=== PATIENT | male | born 1970 | race Caucasian/White ===

== ENCOUNTER 2017-04-24 08:35 | Day surgery (SDC) | payer OTHER ==
[2017-04-24] MEDS ORDERED: ASPIRIN EC 325 MG TAB PO ONE (08:41)
[2017-04-24] MEDS ORDERED: NS 1,000 ML IV ONE (08:41)
[2017-04-24] MEDS ORDERED: FAMOTIDINE 20 MG TAB PO ONE (08:41)
[2017-04-24] MEDS ORDERED: DIAZEPAM 5 MG TAB PO ONE (08:41)
[2017-04-24] MEDS ORDERED: diphenhydrAMINE 25 MG CAP PO ONE (08:41)
--- NOTE | 2017-04-24 09:09 | CPEKG ---
Heart Rate: 61 RR Interval: 984 P-R Interval: 164 QRSD Interval: 88 QT Interval: 416 QTC Interval: 419 P [place]: 64 QRS [place]: 86 T Wave [place]: 55 EKG Severity - BORDERLINE ECG - EKG Impression: SINUS RHYTHM EKG Impression: CONSIDER RVH Electronically Signed By: Topher Wood 24-Apr-2017 17:35:13
[2017-04-24 09:23] LABS: % IMMATURE GRANULYOCYTES 0.2 % (0.0-1.1); ABSOLUTE IMMATURE GRANULOCYTES 0.01 10^3/uL (0.00-0.10); ADD DIFF? NO; ADD MORPH? NO; ADD SCAN? NO; ATYPICAL LYMPHOCYTE FLAG 0 (0-99); FRAGMENT RBC FLAG 0 (0-99); HEMATOCRIT 46.4 % (40.0-51.0); LEFT SHIFT FLG 0 (0-99); LIPEMIA HEMOLYSIS FLAG 90 (0-99); MEAN CELL HEMOGLOBIN 30.3 pg (27.9-34.1); MEAN CELL HEMOGLOBIN CONCENTR. 34.5 g/dL (32.4-36.7); MEAN CELL VOLUME 87.9 fL (81.5-99.8); MEAN PLATELET VOLUME 9.7 fL (8.7-11.7); PLATELET CLUMPS FLAG 0 (0-99); PLATELET COUNT 191 10^3/uL (150-400); RED BLOOD CELL COUNT 5.28 10^6/uL (4.40-6.38); RED CELL DISTRIBUTION WIDTH 12.3 % (11.5-15.2)
[2017-04-24 09:33] LABS: ANION GAP 11 mEq/L (8-16); CALCIUM 9.1 mg/dL (8.5-10.4); CARBON DIOXIDE 27 mEq/l (22-31); CHLORIDE 104 mEq/L (97-110); CHOLESTEROL 224 mg/dL (140-200); CHOLESTEROL/HDL RATIO 3.61 RATIO (1.00-4.97); CREATININE 1.2 mg/dL (0.7-1.3); GLOMERULAR FILTRATION RATE > 60; GLUCOSE 91 mg/dL (70-100); HIGH DENSITY LIPOPROTEIN 62 mg/dL (40-65); LDL/HDL RATIO 2.27 RATIO (1.00-3.64); LOW DENSITY LIPOPROTEIN 141 mg/dL (70-100); NON-HIGH DENSITY LIPOPROTEIN 162 mg/dL (90-129); POTASSIUM 4.2 mEq/L (3.5-5.2); SODIUM 142 mEq/L (134-144); TRIGLYCERIDE 109 mg/dL (40-150); VERY LOW DENSITY LIPOPROTEINS 21 mg/dL (8-25)
[2017-04-24 09:35] LABS: INR 0.99 (0.83-1.16)
[2017-04-24] MEDS ORDERED: IOPAMIDOL (ISOVUE-370) 150 ML BTL IV ONE (10:42)
[2017-04-24] MEDS ORDERED: MIDAZOLAM 2 MG/2 ML VIAL ONE (10:42)
[2017-04-24] MEDS ORDERED: LIDOCAINE 1% 300 MG/30 ML SDV ONE (10:42)
[2017-04-24] MEDS ORDERED: fentaNYL 100 MCG/2 ML INJ ONE (10:42)
--- NOTE | 2017-04-24 11:31 | PDGENHP ---
History & Physical Chief Complaint: Exertional chest pressure with radiation to the arms History of Present Illness: 47 year old with exetional chest pressuer with radaiton to the arms bilaterally with ECG changes and chest pressure on ETT. Pertinent Past, Social, Family History: Hyperlipidmeia, Anxiety Relevant Physical Exam: Awake, Alert Appropriate
--- NOTE | 2017-04-24 11:31 | PDPROPOC ---
Sedation Plan of Care Sedation Plan of Care: vital signs stable, mental status noted, patient educated of risks, benefits, alternatives, patient can tolerate sedation ASA Classification: ASA 2 Planned drugs: fentanyl, midazolam Mallampati Score: Class 1 Mallampati Reference Image: Patient passed 3-3-2 rule?: Yes
[2017-04-24] MEDS ORDERED: NITROGLYCERIN 0.4 MG BTL SL PRN (12:31)
[2017-04-24] MEDS ORDERED: ATROPINE SULFATE 1 MG/10 ML SYR IVP PRN (12:31)
[2017-04-24] MEDS ORDERED: ONDANSETRON 4 MG/2 ML VIAL IVP PRN (12:31)
[2017-04-24] MEDS ORDERED: HYDROCODONE/APAP 5/325 TAB PO PRN (12:31)
[2017-04-24] MEDS ORDERED: OXYCODONE/APAP 5/325 TAB PO PRN (12:31)
[2017-04-24] MEDS ORDERED: ATROPINE SULFATE 1 MG/10 ML SYR ONE (12:39)
[2017-04-24] MEDS ORDERED: ASPIRIN 325 MG TAB ONE (12:41)
--- NOTE | 2017-04-24 17:12 | CPIP ---
[f rep st] INVASIVE CARDIAC PROCEDURE DATE OF PROCEDURE: 04/24/2017 PROCEDURE PERFORMED: Diagnostic left heart catheterization. INDICATION FOR PROCEDURE: Exertional chest pressure with radiation to the arms bilaterally, coupled with chest pressure during exercise treadmill stress test with 2 mm ECG changes. PROCEDURE: After informed consent was obtained, the patient was brought to the cardiac catheterizati on lab, where he was prepped and draped in sterile fashion. Using 1% lidocaine, the right groin was anesthetized. Using the modified Seldinger technique, 6-Danish catheter was placed into the right co mmon femoral artery without complications. A JL4 catheter was used to cannulate the left main. Imag es of the left coronary anatomy obtained were in multiple projections. JL4 catheter was exchanged ov er a guidewire for a JR4 catheter. JR4 catheter was used to take images of the right coronary anatom y. JR4 catheter was exchanged over a guidewire for an angled pigtail catheter. Angled pigtail erlinda ter was used to cross the aortic valve. Left ventriculogram was performed. LVEDP was assessed, and aortic valve gradient was assessed. Angled pigtail catheter was removed over a guidewire without com plications. Imaging of the right common femoral artery site demonstrated appropriate placement of th e 6-Danish sheath at the level of the femoral head. There was a high bifurcation, and we will hold m anual pressure. FINDINGS: CORONARY ANATOMY: 1. Left main is normal in size and caliber. It bifurcates into left anterior descending and left ci rcumflex coronary arteries. There is no evidence of coronary artery disease in the left main. 2. Left anterior descending wraps around the LV apex. There is no evidence of coronary artery disea se within the left anterior descending. 3. Left circumflex artery is a codominant vessel. There is no evidence of coronary artery disease w ithin the circumflex vessel or its branches. 4. The right coronary artery is a codominant vessel with a PDA and PLV branch. There is no evidence of coronary artery disease within the right coronary artery. HEMODYNAMICS: LVEF 60% to 65%, LVEDP 10 mmHg, and aortic valve gradient none. CONCLUSION: 1. Normal coronary arteries. 2. Normal left ventricular function with LVEF of 60% to 65%. 3. Normal LVEDP at 10 mmHg. PLAN: Patient will be discharged home after bedrest and with manual hold. Would recommend a trial o f Protonix as an alternative cause to his symptoms. /[id number]/MODL
== END 2017-04-24 18:10 | disposition home or self-care (01) ==
LOC: FCATH 08:35
PROVIDERS: ATTEND Internal Medicine Cardiovascular Disease
DX: R07.89 Other chest pain (principal); R94.39 Abnormal result of other cardiovascular function study; E78.5 Hyperlipidemia, unspecified; F41.9 Anxiety disorder, unspecified
CPT/HCPCS: J0461; J1644; J2250; J3010; Q9967